=== PATIENT | male | born 1965 | race Caucasian/White ===

== ENCOUNTER → 2017-05-25 | Outpatient (CLI) | payer OTHER ==
--- NOTE | 2017-05-25 16:24 | Myocardial Perfusion Study ---
Myocardial Perfusion Study Rpt Myocardial Perfusion Study Rpt Myocardial Perfusion Study Rpt ONE DAY NUCLEAR MEDICINE EXERCISE TECHNETIUM 99M MYOCARDIAL PERFUSION SCAN Indication: Atypical chest pain Baseline ECG: Normal sinus rhythm, no ST abnormalities. Ventricular rate 67 he. Stress ECG: Exercise for 11 minutes, achieving 13.4 Mets. No exercise induced ST changes. No arrhythmias. HR marcelo from 68-173 representing 102 % MPHR. SBP 138/82 to 208/92. The Technique: For the stress portion of the study 32 mCi of Technetium 99m Cardiolite IV was injected at 11:36 a.m. on 05/25/2017. 15 minutes following the injection, imaging of the heart was performed in multiple projections. For the rest portion of the study, 11.0 mCi of Technetium 99m Cardiolite was injected IV at 9:32 a.m.. One hour following the injection, imaging of the hear was performed in the same projections. Findings: Rotating raw images were reviewed in detail. Potential sources of attenuation include mild diaphragmatic attenuation, and minimal gut uptake impacting the inferior imaging border of the heart. No significant extracardiac pathologic uptake. Short axis, vertical long axis and horizontal long axis images were reviewed in detail. No visual TID. Normal myocardial perfusion on both stress and rest. Normal LV size. EDV 83 ml. Calculated EF 54 %. No regional wall motion abnormalities. SUMMARY: 1. Normal myocardial perfusion with no exercise induced ischemia. 2. Normal LV size and function. LVEF 54 % with no regional wall motion abnormalities. 3. Negative stress ECG. Above average exercise capacity. Exercise 11 minutes, achieving 13.4 Mets. 4. No exercise-induced chest pain. Normal hemodynamic response to exercise. Venegas treadmill score of 11 representing low risk study for future adverse cardiac events.
== END | disposition home or self-care (01) ==
LOC: C.NUCL 09:09
PROVIDERS: ATTEND Physician Assistant
DX: R07.9 Chest pain, unspecified (principal)